=== PATIENT | female | born 1960 | race Caucasian/White ===

== ENCOUNTER 2016-12-22 05:54 | Day surgery (SDC) | payer BC ==
[2016-12-15 16:45] LABS: HEMOGLOBIN 11.7 g/dL (12.0-16.0)
[2016-12-15 16:47] LABS: BUN (BLOOD UREA NITROGEN) 17 MG/DL (6-23); CALCIUM, SERUM 8.7 MG/DL (8.5-10.4); CHLORIDE, SERUM 104 MMOL/L (96-112); CO2 (CARBON DIOXIDE) 33 MMOL/L (24-34); CREATININE 0.96 MG/DL (0.55-1.02); GFR AFRICAN AMERICAN 77 ML/MIN (>=60); GFR NON AFRICAN AMERICAN 66 ML/MIN (>=60); GLUCOSE, SERUM 92 MG/DL (60-99); POTASSIUM, SERUM 3.9 MMOL/L (3.5-5.3); SODIUM, SERUM 143 MMOL/L (135-148)
[2016-12-15 16:48] LABS: HEMATOCRIT 34.7 % (36.0-48.0)
--- NOTE | ~2016-12-22 | OP ---
Record Of Operation [facility] [address] [place]. [address] NAME: LETICIA FARIAS : 60 STATUS : [facility]#: [id number] AGE: 56 ADM/REG DATE : 12/22/16 MR#: [id number] REPORT SERV DATE: 12/25/16 DICTATED BY: ANAND DARLING DATE: 12/22/16 REPORT STATUS : Draft TRANSCRIBED BY: MODL DATE: 12/22/16 DATE OF PROCEDURE: 12/22/2016 PREOPERATIVE DIAGNOSIS: Right epistaxis with deviated nasal septum, impeding visualization of the site of bleeding. POSTOPERATIVE DIAGNOSIS: Right epistaxis with deviated nasal septum, impeding visualization of the site of bleeding. PROCEDURE: Septoplasty with nasal endoscopy for control of epistaxis. ANESTHESIA: General endotracheal. ESTIMATED BLOOD LOSS: 50 mL. INTRAOPERATIVE FLUIDS: 1 L of crystalloid. INTRAOPERATIVE FINDINGS: Severe right-sided nasal septal deflection, impeding visualization of the mid to posterior portion of the nasal airway on the right side. Following straightening of the septum, two small bleeding sources were identified overlying the ethmoid bulla on the right side as well as the leading edge of the right inferior turbinate. OPERATIVE PROCEDURE: The patient was identified in the holding room, transported to the operating room. In the operating room, patient was placed on the operating room table in supine position. Following induction of anesthesia, the patient was intubated without difficulty. Afrin-soaked pledgets were placed to the nose bilaterally. The septum was injected with 1% lidocaine with 1:100,000 epinephrine on both sides. The patient was then prepped and draped in preparation for her nasal surgery. A rigid nasal endoscopy was performed. As had been noted in the office, visualization of the mid to posterior portion of the nasal airway was not possible due to the severity of her nasal septal deformity. With this maneuver, no gross bleeding source could be identified. A septoplasty was, therefore, performed to improve access to the right nasal airway. A [place] incision was created in the left side of the nose. A mucoperichondrial flap was developed and extended posteriorly over the bony cartilaginous junction. There was a deep invagination of the mucosa on the left side due to the nasal septal deflection to the right side. Despite attempts to avoid tearing in the apex of this invagination, was unable to elevate the flap intact. An incision was created through the quadrangular cartilage, leaving a greater than 1 cm caudal strut. I did attempt to elevate a mucoperichondrial flap at this point; however, given the severity of the nasal septal deformity, I was unable to easily establish a plane between the mucoperichondrial flap and the quadrangular cartilage. I did, therefore, perform a munira-transfixion incision in the right side of the nose. Through this incision, the mucoperichondrial flap was developed and extended posteriorly over the bony cartilaginous junction as was performed on the left side. A strip of deflected cartilage was removed from the floor of the septum, removing a width of approximately 8 mm of cartilage from this area. The quadrangular cartilage was then divided from the bony nasal septum, leaving a strong dorsal attachment. There was a severe deformity of the bony nasal Record Of Operation [facility] [address] [facility] [place]. [address] NAME: LETICIA FARIAS : 60 STATUS : [facility]#: [id number] AGE: 56 ADM/REG DATE : 12/22/16 MR#: [id number] REPORT SERV DATE: 12/25/16 DICTATED BY: ANAND DARLING DATE: 12/22/16 REPORT STATUS : Draft TRANSCRIBED BY: YUDI DATE: 12/22/16 septum to the right side at the junction of the perpendicular plate of the ethmoid and the vomer. This was dissected with extreme care, to attempt to avoid creating a rent in the mucoperiosteal flap at the apex of the nasal septal deformity; however, on dissecting the apex of this deformity, a small rent was created. A persistence spur of bone was noted along the floor of the nose related to hypertrophic bone along the nasal crest, which was removed with the use of an osteotome. The flaps were placed and the septum was noted to be in the midline. The [place] incision and right hemitransfixion incision were both closed with interrupted 3-0 chromic suture. A quilting stitch was then placed. On placing the quilting stitch, care was taken to reapproximate the mucosa to close the rents in the mucoperiosteal and mucoperichondrial flaps on both sides to prevent nasal septal perforation. Following placement of the quilting stitch, a nasal endoscopy was performed which revealed no visible defect in the nasal septum. Attention was then turned returned to the right side. A moderate amount of organized clot was evacuated from the nasal airway. Upon removing this clot, there was a small area of bleeding identified on the anterior edge of the right inferior turbinate. There was also a small amount of bleeding coming from the face of the ethmoid bulla on the right side. Both of these areas were gently cauterized with the use of the suction cautery. There was a mild amount of oozing of blood from the middle meatus as well as blood arising from the superior nasal septum, medial to the middle turbinate. Surgiflo was applied to the nasal airway and carefully evacuated. Following this maneuver, there was no residual bleeding identified. The inferior turbinates were outfractured bilaterally. Moore splints were applied to the nose. The patient was subsequently awakened from anesthesia, extubated in the operating room, and transported to recovery room in good condition. The patient tolerated the procedure well with no apparent complications. Specimens include nasal septal bone and cartilage. GARY/YUDI Anand Darling M.D. / [id number] CC: Omega Arteaga M.D.
[~2016-12-22 05:54] MED LIST: BRILINTA90 MG PO; COSAMIN DS1 TAB PO; DIVIGEL0.25 MG TD; ESTRACE0.5 MG PO; FLAXSEED OIL1000 MG PO; GLUCCHONDR PO; GLUCPH PO; HALF81 PO; HARD NAILS PO; HEMOCYTE324 MG PO; HYDROCHLOROT25 MG PO; IMDUR30 PO; IRON325 MG PO; LIPITOR40 PO; LISINOPRIL40 MG PO; LOP25 PO; NEXIUM20 M1 PO; NITROSTAT0.4 MG SL; OCEAN NAS; PLAVIX PO; PRILOSEC40 MG PO; PRIN20 PO; TRAZ100 PO; ZANTAC150 MG PO
== END 2016-12-22 11:24 | disposition home or self-care (01) ==
LOC: SDC 05:54
PROVIDERS: Otolaryngology
PROC: 09SM4ZZ Reposition Nasal Septum, Percutaneous Endoscopic Approach (ICD-10-PCS; principal; 2016-12-22 07:15)
PROC: 0W3Q8ZZ Control Bleeding in Respiratory Tract, Via Natural or Artificial Opening Endoscopic (ICD-10-PCS; 2016-12-22 07:15)
DX: J34.2 Deviated nasal septum (principal); R04.0 Epistaxis; I25.10 Atherosclerotic heart disease of native coronary artery without angina pectoris; I10 Essential (primary) hypertension; E11.9 Type 2 diabetes mellitus without complications; E78.5 Hyperlipidemia, unspecified; E78.00 Pure hypercholesterolemia, unspecified; E88.81 Metabolic syndrome and other insulin resistance; M19.90 Unspecified osteoarthritis, unspecified site; K21.9 Gastro-esophageal reflux disease without esophagitis; D64.9 Anemia, unspecified; Z87.891 Personal history of nicotine dependence; Z95.5 Presence of coronary angioplasty implant and graft; Z86.79 Personal history of other diseases of the circulatory system; Z90.3 Acquired absence of stomach [part of]; Z91.048 Other nonmedicinal substance allergy status; Z79.82 Long term (current) use of aspirin; Z79.02 Long term (current) use of antithrombotics/antiplatelets; Z79.818 Long term (current) use of other agents affecting estrogen receptors and estrogen levels; Z79.84 Long term (current) use of oral hypoglycemic drugs; Z79.899 Other long term (current) drug therapy; Z98.1 Arthrodesis status; Z90.710 Acquired absence of both cervix and uterus; Z98.890 Other specified postprocedural states
CPT/HCPCS: 80048; 82962; 85014; 85018; 88300; 93005; A9270-GY; J0330; J0690; J2250; J2370; J2405; J3010

== ENCOUNTER 2017-01-09 03:00 | Observation (INO) | payer BC ==
[2017-01-09 03:19] LABS: BASOPHILS 0.3 %; BASOPHILS ABSOLUTE 0.02 10/3/uL (0.0-0.16); EOSINOPHILS 3.7 %; EOSINOPHILS ABSOLUTE 0.27 10/3/uL (0.0-0.53); HEMATOCRIT 36.1 % (36.0-48.0); HEMOGLOBIN 12.2 g/dL (12.0-16.0); IMMATURE GRANULOCYTES 0.1 %; IMMATURE GRANULOCYTES ABSOLUTE 0.01 10/3/uL (0.0-0.11); LYMPHOCYTES ABSOLUTE 1.91 10/3/uL (0.67-4.30); MEAN CORPUS HGB CONC 33.8 g/dL (32.0-36.0); MEAN CORPUSCULAR VOLUME 91.6 fL (80-100); MEAN PLATELET VOLUME 9.4 fL (9.2-13.0); MONOCYTES 5.8 %; MONOCYTES ABSOLUTE 0.43 10/3/uL (0.21-1.20); NEUTROPHILS 64.1 %; NEUTROPHILS ABSOLUTE 4.72 10/3/uL (2.02-8.40); PLATELET COUNT 262 10/3/uL (150-400); RBC DISTRIBUTION WIDTH 12.4 % (12.0-16.0); RED CELL COUNT 3.94 10/6/uL (4.0-5.6); WHITE BLOOD CELLS 7.4 10/3/uL (4.5-10.5)
[2017-01-09 03:20] LABS: ER CBC TAT 0 Hrs 04 MinsNP; MANUAL DIFF NO %
[2017-01-09 03:36] LABS: A/G RATIO 0.9 (0.7-1.9); ALBUMIN 3.3 G/DL (3.5-5.0); ALKALINE PHOSPHATASE 73 U/L (45-117); CALCIUM, SERUM 8.7 MG/DL (8.5-10.4); CHLORIDE, SERUM 106 MMOL/L (96-112); CO2 (CARBON DIOXIDE) 29 MMOL/L (24-34); CREATININE 0.83 MG/DL (0.55-1.02); GFR AFRICAN AMERICAN 91 ML/MIN (>=60); GFR NON AFRICAN AMERICAN 79 ML/MIN (>=60); GLOBULIN 3.6 G/DL (2.5-4.1); GLUCOSE, SERUM 97 MG/DL (60-99); POTASSIUM, SERUM 3.7 MMOL/L (3.5-5.3); SGOT(AST) 12 U/L (5-40); SGPT(ALT) 18 U/L (5-65); SODIUM, SERUM 144 MMOL/L (135-148); TOTAL BILIRUBIN 0.2 MG/DL (0-1.2); TOTAL PROTEIN 6.9 G/DL (6.0-8.5)
[2017-01-09 03:37] LABS: BUN (BLOOD UREA NITROGEN) 22 MG/DL (6-23)
[2017-01-10] MEDS ORDERED: K500 PO (08:46)
== END 2017-01-10 09:45 | disposition home or self-care (01) ==
LOC: ER 03:00 → 7NO 04:07
PROVIDERS: Emergency Medicine
PROC: 03L Upper Arteries, Occlusion (ICD-10-PCS; principal; 2017-01-09)
DX: R04.0 Epistaxis (principal); I10 Essential (primary) hypertension; E78.00 Pure hypercholesterolemia, unspecified; Z88.8 Allergy status to other drugs, medicaments and biological substances; M19.90 Unspecified osteoarthritis, unspecified site; K21.9 Gastro-esophageal reflux disease without esophagitis; Z90.710 Acquired absence of both cervix and uterus; D64.9 Anemia, unspecified; Z90.49 Acquired absence of other specified parts of digestive tract; Z79.02 Long term (current) use of antithrombotics/antiplatelets; Z79.82 Long term (current) use of aspirin; Z79.899 Other long term (current) drug therapy; Z79.84 Long term (current) use of oral hypoglycemic drugs; Z87.891 Personal history of nicotine dependence; Z98.890 Other specified postprocedural states
CPT/HCPCS: 36217; 37244; 61626; 75894; 75898; 80053; 85025; 96374; 96376; 99152; 99153; 99285; A9270-GY; C1769; C1887; C1894; G0378; J1170; J2250; J2405; J3010; Q9967